=== PATIENT | female | born 1955 | race Caucasian/White ===

== ENCOUNTER 2018-02-21 06:20 | Day surgery (SDC) | payer MEDICARE ==
[~2018-02-21] VITALS: Ht 166.4 cm; Wt 99.8 kg
--- NOTE | ~2018-02-21 | OP ---
PATIENT NAME: DIMPLE HOFFMAN MEDICAL RECORD: [id number] :59 LOCATION:[facility] ADMISSION DATE: SURGEON: BORIS HYATT MD DATE OF OPERATION: 02/21/2018 PREOPERATIVE DIAGNOSIS: Lumbar spinal stenosis with foraminal stenosis, L4-L5, right. SURGEON: Boris Hyatt MD PROCEDURE: Lumbar laminectomy, medial facetectomy and foraminotomy at L4-L5 on the right with METRx Rx retractor. PRIMARY CARE DOCTOR: Dr. Wolf Olivares in [place], [place] DESCRIPTION AND TECHNIQUE: After induction of general endotracheal anesthesia, the patient was rolled prone on the Yuri frame. Lumbar spine was prepped and draped in usual sterile fashion. Fluoroscopic x-ray and spinal needle localized the L4-L5 interspace on the right side. The stab incision was created with a #11 blade. Series of dilators used to advance a METRx retractor at L4-L5 interspace on the right side. The level was confirmed with fluoroscopic x-ray. A microscope and Midas Leonard drill were used to perform a laminectomy, medial facetectomy, and foraminotomy at L4-L5 on the right. Hypertrophied ligamentum flavum was removed with Cloward rongeurs to relieve the central canal stenosis and foraminal stenosis at L4-L5 on the right. Once this was accomplished, the L5 nerve root was decompressed well. Meticulous hemostasis was maintained throughout the wound. The disc space was inspected and found to cause no significant nerve root compression. The retractor was removed. The fascia was closed with 2-0 Vicryl suture, the subdermal layer was closed with 3-0 Vicryl suture. The skin was reapproximated with aury. A sterile dressing was applied to the wound. The patient was awakened in good condition, taken to recovery. All counts were reported as correct. Estimated blood loss was minimal. TRANSINT:[id number] Voice Confirmation ID: [id number] DOCUMENT ID: [id number] BORIS HYATT MD at 1427 CC: [id number] DICTATION DATE: 03/13/18613 OPTIMIZATION ENGINEER: 03/13/18 1212 [facility] 02/21/18 [place] [address]
[2018-02-21 07:45] LABS: HEMATOCRIT 36.5 % (36.0-48.0); HEMOGLOBIN 12.4 g/dL (12-16); MCH 31.2 pg (26.0-34.0); MCV 91.7 fL (80.0-100.0); MEAN PLATELET VOLUME 10.2 fL (7.4-10.4); RBC 3.98 10x6/uL (4.00-5.40); RDW 12.5 % (11.5-14.5); WBC 5.3 10x3/uL (4.8-10.8)
[2018-02-21 08:09] LABS: CALC OSMOLALITY 289 mosm/kg (275-300); CALCIUM 9.1 mg/dL (8.5-10.1); CARBON DIOXIDE 30.8 mmol/L (21.0-32.0); CHLORIDE - SERUM 107 mmol/L (98-107); CREATININE - SERUM 0.7 mg/dL (0.6-1.3); GLUCOSE 105 mg/dL (74-106); POTASSIUM - SERUM 4.1 mmol/L (3.5-5.1); SODIUM 146 mmol/L (136-145); UREA NITROGEN 9 mg/dL (7-18); eGFR NON AFRICAN AMERICAN 90 mL/min (90-120)
[2018-02-21] MEDS ORDERED: CYCLOBENZAPRINE10 MG PO (08:11)
[2018-02-21] MEDS ORDERED: NIZORAL 2 % CRE15 GM TOPICAL (08:12)
[2018-02-21] MEDS ORDERED: NEURONTIN 400400 MG PO (08:12)
[2018-02-21] MEDS ORDERED: PLAVIX75 MG PO (08:13)
[2018-02-21] MEDS ORDERED: GLIMEPIRIDE4 MG PO (08:13)
[2018-02-21] MEDS ORDERED: GLUCOPHAGE1000 MG PO (08:14)
[2018-02-21] MEDS ORDERED: NORCO 7.5/325 T1 TA1 PO (08:14)
[2018-02-21] MEDS ORDERED: TRAZODONE HCL150 MG PO (08:14)
[2018-02-21] MEDS ORDERED: COZAAR25 MG PO (08:15)
[2018-02-21 08:27] VITALS: BP 148/73; Ht 166.4 cm; Wt 99.8 kg
== END 2018-02-21 13:45 | disposition home or self-care (01) ==
LOC: D.OPS 06:20 → D.PAN 09:15 → D.OPS 09:15
PROVIDERS: Anesthesiology
DX: M48.061 Spinal stenosis, lumbar region without neurogenic claudication (principal); I10 Essential (primary) hypertension; E11.9 Type 2 diabetes mellitus without complications; M54.16 Radiculopathy, lumbar region; Z01.812 Encounter for preprocedural laboratory examination

== ENCOUNTER 2018-04-02 17:03 | Emergency (ER) | payer MEDICARE ==
[~2018-04-02] VITALS: Ht 166.4 cm; Wt 90.9 kg
[~2018-04-02 17:03] MED LIST: COZAAR25 MG PO; CYCLOBENZAPRINE10 MG PO; GLIMEPIRIDE4 MG PO; GLUCOPHAGE1000 MG PO; NEURONTIN 400400 MG PO; NIZORAL 2 % CRE15 GM TOPICAL; NORCO 7.5/325 T1 TA1 PO; PLAVIX75 MG PO; TRAZODONE HCL150 MG PO
[2018-04-02 17:06] VITALS: Ht 166.4 cm; Wt 90.9 kg
[2018-04-02] MEDS ORDERED: PROZAC20 MG PO (17:07)
[2018-04-02] MEDS ORDERED: LASIX20 MG PO (17:07)
[2018-04-02] MEDS ORDERED: TYLENOL W/CODEI1 TAB PO (20:46)
[2018-04-02] MEDS ORDERED: CYCLOBENZAPRINE10 MG PO (20:46)
[2018-04-02] MEDS ORDERED: PREDNISONE10 MG PO (20:47)
[2018-04-02 21:20] VITALS: BP 149/56
== END 2018-04-02 21:21 | disposition home or self-care (01) ==
LOC: D.ER 17:03
DX: S39.012A Strain of muscle, fascia and tendon of lower back, initial encounter (principal); W19.XXXA Unspecified fall, initial encounter; Y93.89 Activity, other specified; Y92.019 Unspecified place in single-family (private) house as the place of occurrence of the external cause; M54.5 Low back pain; M54.31 Sciatica, right side; E11.9 Type 2 diabetes mellitus without complications; I10 Essential (primary) hypertension

== ENCOUNTER 2018-05-02 09:23 | Day surgery (SDC) | payer MEDICARE ==
[~2018-05-02] VITALS: Ht 167.6 cm; Wt 95.3 kg
--- NOTE | ~2018-05-02 | OP ---
PATIENT NAME: DIMPLE HOFFMAN MEDICAL RECORD: [id number] :59 LOCATION:[facility] ADMISSION DATE: SURGEON: BORIS NIXON MD DATE OF OPERATION: 05/02/2018 PREOPERATIVE DIAGNOSIS: Recurrent disc herniation at L4-L5, right. PROCEDURE: Redo laminectomy and facetectomy and foraminotomy with discectomy, L4-L5 right. DESCRIPTION AND TECHNIQUE: After induction of general endotracheal anesthesia, the patient was rolled prone on a Yuri frame. The previous incision was incised with a stab incision using a #11 blade. Series of dilators was used to advance a METRx retractor at L4-L5 interspace on the right side. Level was confirmed with fluoroscopic x-ray. A microscope and Midas Leonard drill were used to perform the previous bone work laterally and superiorly. Scar tissue was removed with Cloward rongeurs as well as additional ligamentum flavum material. The L5 nerve root was identified and dissected free from scar material just ventral to the nerve root and in the axilla of the nerve root. There was obvious disc herniation. This was removed in a piecemeal fashion with pituitary rongeurs. The spinal canal was searched for any further disc fragments, none were found. The nerve root was well decompressed. Meticulous hemostasis was maintained throughout the wound. The wound was irrigated with copious amounts of Ancef irrigant solution. The fascia was closed with 2-0 Vicryl suture, the subdermal layer was closed with 3-0 Vicryl suture. The skin was reapproximated with aury. Sterile dressing was applied to the wound. The patient was awakened in good condition and taken to recovery. All counts were reported as correct. Estimated blood loss was minimal. TRANSINT:[id number] Voice Confirmation ID: [id number] DOCUMENT ID: [id number] BORIS NIXON MD at 1708 CC: [id number] DICTATION DATE: 05/16/18 1011 [employer] PR[employer] OPERATOR: 05/16/18 1049 [facility] 05/02/[address] [id number]
[~2018-05-02 09:23] MED LIST changes: +LASIX20 MG PO; +PREDNISONE10 MG PO; +PROZAC20 MG PO; +TYLENOL W/CODEI1 TAB PO
[2018-05-02 09:44] LABS: HEMATOCRIT 42.9 % (36.0-48.0); HEMOGLOBIN 14.9 g/dL (12-16); MCH 30.1 pg (26.0-34.0); MCHC 34.7 g/dL (31.0-37.0); MCV 86.7 fL (80.0-100.0); MEAN PLATELET VOLUME 9.8 fL (7.4-10.4); RBC 4.95 10x6/uL (4.00-5.40); RDW 13.5 % (11.5-14.5); WBC 10.1 10x3/uL (4.8-10.8)
[2018-05-02 10:02] LABS: CALC OSMOLALITY 277 mosm/kg (275-300); CALCIUM 9.3 mg/dL (8.5-10.1); CARBON DIOXIDE 26.9 mmol/L (21.0-32.0); CHLORIDE - SERUM 99 mmol/L (98-107); CREATININE - SERUM 0.8 mg/dL (0.6-1.3); POTASSIUM - SERUM 3.8 mmol/L (3.5-5.1); SODIUM 136 mmol/L (136-145); UREA NITROGEN 11 mg/dL (7-18); eGFR NON AFRICAN AMERICAN 77 mL/min (90-120)
[2018-05-02 10:04] LABS: GLUCOSE 223 mg/dL (74-106)
[2018-05-02 11:22] VITALS: BP 138/92; Ht 167.6 cm; Wt 95.3 kg
== END 2018-05-02 20:07 | disposition home or self-care (01) ==
LOC: D.OPS 09:23
PROVIDERS: Anesthesiology
DX: M51.16 Intervertebral disc disorders with radiculopathy, lumbar region (principal); Z01.812 Encounter for preprocedural laboratory examination

== ENCOUNTER → 2018-09-04 09:01 | Outpatient (CLI) | payer MEDICARE ==
[2018-05-02 11:22] VITALS: BMI 33.9
== END | disposition home or self-care (01) ==
LOC: D.MRI 08:30
DX: M54.16 Radiculopathy, lumbar region (principal)

== ENCOUNTER → 2018-10-19 09:05 | Day surgery (SDC) | payer MEDICARE ==
[2018-10-18 14:25] LABS: HEMOGLOBIN 11.1 g/dL (12-16); MCH 26.3 pg (26.0-34.0); MCHC 31.7 g/dL (31.0-37.0); MCV 82.9 fL (80.0-100.0); MEAN PLATELET VOLUME 9.9 fL (7.4-10.4); RBC 4.22 10x6/uL (4.00-5.40); RDW 16.1 % (11.5-14.5); WBC 5.1 10x3/uL (4.8-10.8)
[2018-10-18 14:40] LABS: ANION GAP 13.8 mmol/L (8-16); CALCIUM 8.8 mg/dL (8.5-10.1); CARBON DIOXIDE 30.2 mmol/L (21.0-32.0); CREATININE - SERUM 0.9 mg/dL (0.6-1.3)
[~2018-10-19] VITALS: Ht 167.6 cm; Wt 97.5 kg
[~2018-10-19 09:05] MED LIST changes: +ADVIL200 MG PO; +EZFE 200200 MG PO; +TOUJEO SOL300 UNIT/1 SC
[2018-10-19 09:44] VITALS: BP 127/60; Ht 167.6 cm; Wt 97.5 kg
--- NOTE | 2018-11-07 10:05 | OP ---
PATIENT NAME: DIMPLE HOFFMAN MEDICAL RECORD: [id number] :59 [facility] DATE: SURGEON: BORIS NIXON MD DATE OF OPERATION: 10/19/2018 PREOPERATIVE DIAGNOSIS: Recurrent disc herniation L4-L5, right. POSTOPERATIVE DIAGNOSIS: Recurrent disc herniation L4-L5, right. PROCEDURES: Redo lumbar laminotomy, medial facetectomy, and foraminotomy L4-L5 on the right with discectomy with METRx retractor. PRIMARY CARE PHYSICIAN: Dr. Tomasz Aden OPERATIVE FINDINGS AND TECHNIQUE: After induction of general endotracheal anesthesia, the patient was rolled prone on a Yuri frame. The previous incision was incised, a series of dilators was used to advance a METRx retractor to the L4-L5 interspace on the right side. The previous scar tissue was incised with a microdissection under microscope. The previous laminotomy was extended with Midas Leonard drill. Next, the scar tissue was removed from the dura with careful microdissection. The disc space was encountered and there was found to be a recurrent disc herniation on the right side, compressing the right L5 nerve root. This was removed in a piecemeal fashion with pituitary rongeurs and curettes. Following this, the L5 nerve root was completely decompressed. Meticulous hemostasis was maintained throughout the wound. The wound was irrigated with copious amounts of Ancef irrigant solution. The fascia was closed with 2-0 Vicryl suture, the subdermal layer was closed with 3-0 Vicryl suture. The skin was closed with aury. A sterile dressing was applied to the wound. The patient was awakened in good condition and taken to the recovery. All counts were reported as correct. Estimated blood loss was minimal. TRANSINT:[id number] Voice Confirmation ID: [id number] DOCUMENT ID: [id number] BORIS NIXON MD at 1005 CC: [id number] DICTATION DATE: 11/01/18 1448 AMMONIUM NITRATE NEUTRALIZER: 11/01/[address] [facility] 10/19/18 [facility] [address] [place] [address]
== END | disposition home or self-care (01) ==
LOC: D.OPS 09:05 → D.PAN 13:45
PROVIDERS: Anesthesiology
DX: M51.26 Other intervertebral disc displacement, lumbar region (principal)

== ENCOUNTER 2020-05-05 16:00 | Outpatient (CLI) | payer MEDICARE ==
[2018-10-19 09:44] VITALS: BMI 34.7
== END 2020-05-05 23:59 | disposition home or self-care (01) ==
LOC: D.MAMMO 16:00
PROVIDERS: ATTEND Nurse Practitioner
DX: Z12.31 Encounter for screening mammogram for malignant neoplasm of breast (principal)